=== PATIENT | male | born 1970 | race American Indian/Alaskan Native ===

== ENCOUNTER 2021-01-02 23:04 | Emergency (ER) | payer SELFPAY ==
[2021-01-02 23:39] VITALS: BP 152/80
[2021-01-03] MEDS ORDERED: KETOROLAC 30 MG/1 ML INJ IV ONE (03:07)
[2021-01-03] MEDS ORDERED: ceFAZolin/NS 1 GM/50 ML 1 GM/50 ML BAG IV ONE (03:07)
--- NOTE | 2021-01-03 03:10 | Emergency Department Report ---
ED General Adult HPI - General Chief complaint: Extremity Injury, Upper Stated complaint: PAINFUL RT HAND SWOLLEN Time Seen by Provider: 01/03/21 03:02 Source: patient Mode of arrival: Ambulatory Limitations: No Limitations - History of Present Illness Initial comments: 50-year-old [id number] male patient presents to the emergency department complaints of nontraumatic right hand pain/redness/swelling starting approximately 24 hours ago. Pain is now radiating to his wrist and distal forearm. No history of similar symptoms. No current steroid or antibiotic use. No history of injuries to the right hand. No medications administered prior to arrival. Denies fever, chills, numbness, paresthesias, weakness, purulent drainage. Denies other complaints at this time. - Related Data Previous Rx's Medication Instructions Recorded Last Taken Type Naproxen 500 mg PO BID #20 tablet 01/03/21 Unknown Rx cephALEXin [Keflex] 500 mg PO Q8HR 7 Days cap 01/03/21 Unknown Rx Allergies Allergy/AdvReac Type Severity Reaction Status Date / Time No Known Allergies Allergy Unverified 01/02/21 23:34 ED Review of Systems ROS: Stated complaint: PAINFUL RT HAND SWOLLEN Other details as noted in HPI Other: GENERAL: Negative for fever, chills, weight change, anorexia, fatigue. ENT: Negative for ear pain, difficulty hearing, sore throat, nasal congestion, epistaxis. CARDIOVASCULAR: Negative for chest pain, palpitations, lower extremity swelling. PULMONARY: Negative for cough, dyspnea, wheezing, orthopnea, cyanosis. GASTROINTESTINAL: Negative for abdominal pain, nausea, vomiting, diarrhea, constipation. MUSCULOSKELETAL: Positive for joint pain. NEUROLOGICAL: Negative for headache, seizure, syncope, paresthesias, weakness. INTEGUMENTARY: Positive for erythema/swelling/warmth HEMATOLOGICAL: Negative for hemoptysis, hematemesis, hematochezia, hematuria. PSYCHIATRIC: Negative for hallucinations, suicidal ideation, homicidal ideation, anxiety, depression. ED Past Medical Hx - Past Medical History Hx Hypertension: Yes - Surgical History Past Surgical History?: No - Social History Smoking Status: Current Every Day Smoker Substance Use Type: Alcohol, Cocaine, Marijuana - Medications Home Medications: Home Medications Medication Instructions Recorded Confirmed Last Taken Type Naproxen 500 mg PO BID #20 tablet 01/03/21 Unknown Rx cephALEXin [Keflex] 500 mg PO Q8HR 7 Days cap 01/03/21 Unknown Rx ED Physical Exam - General Limitations: No Limitations - Other Other exam information: General: Awake and alert. No acute distress. Head: Atraumatic, normocephalic. Eyes: EOMI. Pupils are equal and round. Normal sclera and conjunctiva. ENT: Oral mucosa is moist. Normal pharyngeal exam. Neck: Supple. No lymphadenopathy. Pulmonary: No respiratory distress. Clear to auscultation bilaterally. Cardiac: Regular rate and rhythm. Pulses are palpable and equal bilaterally. No lower extremity cyanosis or edema. Abdomen: Soft, non-tender, non-protuberant. No guarding, rigidity, or rebound. Bowel sounds are normal. No organomegaly or masses noted. Back: Normal alignment. No CVA tenderness. Extremities: Tenderness to palpation along the volar aspect of the right hand with overlying erythema and soft tissue swelling. No localized tenderness along the flexor tendon sheath. The hand is held in a neutral position at rest. No fusiform swelling of the digits. No pain with passive extension of the digits. Pain is appropriately proportional to exam findings. No crepitus. No proximally streaking erythema. Strong radial pulse. Brisk capillary refill. Distal neurovascular and motor/sensory function intact. Neurological: Alert and oriented, appropriately interactive, no focal deficits. Psych: Cooperative. Appropriate mood and affect. Speech is evenly metered. Thoughts are logically construed. ED Course Vital Signs 01/02/21 23:34 Temperature 99.0 F Pulse Rate 90 Respiratory 18 Rate Blood Pressure 152/80 O2 Sat by Pulse 98 Oximetry ED Medical Decision Making - Lab Data Result diagrams: 01/03/21 03:28 01/03/21 03:28 - Medical Decision Making Differential diagnosis including but not limited to: cellulitis, abscess, infectious tenosynovitis, necrotizing soft tissue infection, strain/sprain, fracture, septic arthritis, gout, pseudogout, osteomyelitis On reevaluation, patient remains stable. Repeat neurovascular exam remains intact. Patient is afebrile. Vital signs are stable. X-rays without evidence of subcutaneous gas or bony destruction. Symptoms are not localized to one joint and patient has no history of gout. Pain is appropriately proportional to exam findings. Clinical presentation is suggestive of nonpurulent cellulitis. Given IV Cefazolin in the emergency department and discharged home with prescription for Keflex per current IDSA guidelines. Patient prescribed appropriate analgesics and referred to primary care provider for close outpatient follow-up. Patient expressed understanding and is agreeable to plan of care. Strict return precautions provided. Repeat exam is unremarkable and benign. History, exam, diagnostic testing, and current condition do not suggest worrisome pathology to warrant further testing, continued ED treatment, admission, or surgical evaluation at this point. Given the low probability of a significant medical illness, it would be more likely to result in harm than benefit to perform further testing at this stage. Discussed findings, presumptive diagnosis, need for follow-up and specific signs/symptoms that should prompt immediate return to the emergency department. Instructions were explained in detail to the patient in addition to giving written discharge information. Patient expressed understanding and was given the opportunity to ask questions, all of which were satisfactorily answered prior to discharge home. Critical care attestation.: If time is entered above; I have spent that time in minutes in the direct care of this critically ill patient, excluding procedure time. ED Disposition Clinical Impression: Cellulitis of right hand Disposition: DC-01 TO HOME OR SELFCARE Is pt being admited?: No Does the pt Need Aspirin: No Condition: Stable Instructions: Cellulitis, Adult, [id number] Additional Instructions: Take Tylenol every 4 hours as needed for pain. Take Naprosyn twice daily with food as needed for pain. Take Keflex with food as directed. Increase your dietary intake of probiotic rich foods while taking this medication. Keep right hand elevated as often as possible to reduce swelling. Follow-up with primary care provider this week. Call today to schedule an appointment. See referral information below. Return to the emergency department immediately for new or worsening symptoms. Specifically, return to the emergency department immediately for fever, worsening pain, increased swelling, paralysis, numbness, or if the area of redness continues to expand 24 hours after starting antibiotics. Prescriptions: cephALEXin [Keflex] 500 mg PO Q8HR 7 Days cap Naproxen 500 mg PO BID #20 tablet Referrals: TATYANA ADKINS MD [Staff Physician] - 3-5 Days [facility] [place]Note 3] [Outside] - 3-5 Days [facility] [Outside] - 3-5 Days [facility] [Outside] - 3-5 Days [facility] [Provider Group] - 3-5 Days Time of Disposition: 06:00
[2021-01-03 03:40] LABS: Mean Corpuscular HGB Conc 36 % (32-34); Mean Corpuscular Volume 95 fl (84-94); Platelet Count 209 K/mm3 (140-440); Red Blood Count 4.94 M/mm3 (3.65-5.03); Red Cell Distribution Width 13.4 % (13.2-15.2)
[2021-01-03 03:51] LABS: Hematocrit 47.1 % (35.5-45.6); Hemoglobin 16.8 gm/dl (11.8-15.2)
[2021-01-03 04:00] LABS: BUN/Creatinine Ratio 13; Blood Urea Nitrogen 10 mg/dL (9-20); Hemolysis Index 51
--- NOTE | 2021-01-03 05:54 | XRay Report ---
EXAMINATION: Right hand radiograph, 3 views, 01/03/2021 CLINICAL INFORMATION: Right hand pain and swelling COMPARISON: None. FINDINGS: There is no evidence of acute fracture or dislocation. No focal soft tissue swelling is mary ntified. There are no significant bony degenerative changes. Signer Name: Britt Umanzor MD Signed: 01/03/2021 5:49 AM Workstation Name: [email or web address]
== END 2021-01-03 06:15 | disposition home or self-care (01) ==
LOC: ED 23:04
DX: L03.113 Cellulitis of right upper limb (principal); I10 Essential (primary) hypertension; F17.200 Nicotine dependence, unspecified, uncomplicated; F14.90 Cocaine use, unspecified, uncomplicated; F12.90 Cannabis use, unspecified, uncomplicated; Z72.89 Other problems related to lifestyle; Z79.899 Other long term (current) drug therapy
CPT/HCPCS: 36415; 73130; 80048; 85027; 96365; 96375; 99284; J0690; J1885